=== PATIENT | female | born 1995 | race African-American/Black ===

== ENCOUNTER 2020-07-27 06:00 | Inpatient (IN) ==
[2020-07-27] MEDS ORDERED: PITOCIN ONE (06:30)
[2020-07-27] MEDS ORDERED: D5 1/2 NS 1000 ML 1,000 ML IV ONE (06:31)
[2020-07-27] MEDS ORDERED: BETADINE SOLN ONE (06:31)
[2020-07-27] MEDS ORDERED: AMPICILLIN VIAL 1 GRAM ONE ×2 (06:34→12:13)
[2020-07-27] MEDS ORDERED: D5 1/2 NS 1L W PITOCIN 20 UNITS/L 20 UNITS/1,000 ML BAG IV ONE ×2 (06:34→18:17)
[2020-07-27] MEDS ORDERED: D5LR 1L W PITOCIN 10 UNITS/L 10 UNITS/1,000 ML BAG IV ONE ×2 (06:34→07:08)
[2020-07-27] MEDS ORDERED: NS 100 ML IV 200 ML IV ONE (06:35)
[2020-07-27] MEDS ORDERED: AMPICILLIN VIAL 2 GRAM ONE (06:35)
[2020-07-27] MEDS: D5 1/2 NS 1000 ML 1,000 ML IV SCH ×2 (06:40→16:43)
--- NOTE | 2020-07-27 07:08 | DR.OB ---
OB Quick Note - Assessment/Plan Assessment/Plan: L&D 07/27/20 at 6:55am S-No complaint. O-Afebrile,VSS PLV=866 with good LTV, +accel, no decel. CTX=occasional,mild CVX=1cm/thick/-2/VTX AROM with clear fluid. IUPC placed but FSE not able to be placed. A-IUP at 39 1/7 weeks for induction +GBS Abnormal quad screen P-Begin pitocin induction IV ABX in labor Anticipate
[2020-07-27] MEDS ORDERED: AMPICILLIN VIAL 2 GRAM 2 G in NS 100 ML IV + SPIKE MINIBAG* 100 ML IV SCH (07:26)
[2020-07-27] MEDS ORDERED: NUBAIN INJ 200 MG VIAL MULTIDOSE IVP PRN (07:26)
[2020-07-27] MEDS ORDERED: MORPHINE SULFATE INJ 2 MG INJ IVP PRN (07:26)
[2020-07-27] MEDS ORDERED: REGLAN INJ 10 MG VIAL IVP PRN ×2 (07:26→18:15)
[2020-07-27] MEDS ORDERED: PHENERGAN INJ 25 MG IM PRN ×2 (07:26→18:15)
[2020-07-27] MEDS ORDERED: D5LR 1L W PITOCIN 10 UNITS/L 10 UNITS/1,000 ML BAG IV PRN (07:26)
[2020-07-27] MEDS ORDERED: STADOL INJ IVP PRN (07:26)
[2020-07-27] MEDS ORDERED: PITOCIN IVP ONE (07:26)
[2020-07-27] MEDS: VSL#3 PO SCH ×2 (07:28→09:00)
[2020-07-27] MEDS: AMPICILLIN VIAL 1 GRAM 1 G in NS 50 ML IV + SPIKE MINIBAG* 50 ML IV SCH ×4 (07:36→16:45)
--- NOTE | 2020-07-27 12:03 | DR.OB ---
OB Quick Note - Assessment/Plan Assessment/Plan: L&D 07/27/20 at 11:55am Pitocin=6mu/min. Ampicillin S-No complaint except CTX pain. O-Afebrile,VSS XYB=649 with good LTV, +accel, no decel. CTX=q1 1/2 to 3 min., about 35-55mmHg CVX=1cm/50%/-1 A-IUP at 39 1/7 weeks for induction +GBS Abnormal quad. screen P-Cont. pitocin induction/IV ABX in labor Anticipate
[2020-07-27] MEDS ORDERED: NS 100 ML IV 100 ML IV ONE (12:13)
[2020-07-27] MEDS ORDERED: STADOL INJ ONE (13:21)
[2020-07-27] MEDS ORDERED: LR 1000 ML IV 1,000 ML IV ONE (16:11)
[2020-07-27] MEDS ORDERED: ANCEF 1 GRAM IV PREMIX* 2 G/100 ML BAG IV ONE (16:12)
--- NOTE | 2020-07-27 16:30 | DR.OB ---
OB Quick Note - Assessment/Plan Assessment/Plan: L&D 07/27/20 at 4:25pm S-No complaint except CTX. O-Afebrile,VSS GTP=139 with poor LTV, +accel, no decel. CTX=q 1 1/2 to 2 min., about 35-55mmHg CVX=1cm/50%/-1 (no change since prior exam) A-IUP at 39 1/7 weeks with failure to dilate P-To C/S
[2020-07-27] MEDS: LR 1000 ML IV 1,000 ML IV ONE ×2 (16:42→16:44)
[2020-07-27] MEDS ORDERED: DILAUDID INJ ONE (16:43)
[2020-07-27] MEDS ORDERED: EPHEDRINE SULFATE INJ ONE (16:50)
[2020-07-27] MEDS ORDERED: VERSED ONE (16:50)
[2020-07-27] MEDS ORDERED: BENADRYL INJ 50 MG VIAL IVP PRN ×2 (18:15→18:40)
[2020-07-27] MEDS ORDERED: DILAUDID INJ IVP PRN (18:15)
[2020-07-27] MEDS ORDERED: ZOFRAN INJ 4 MG VIAL IVP PRN ×2 (18:15→18:40)
[2020-07-27] MEDS ORDERED: PERCOCET TAB 5/325 MG PO PRN (18:40)
[2020-07-27] MEDS ORDERED: MYLICON TAB 80 MG CHEW PO PRN (18:40)
[2020-07-27] MEDS ORDERED: ADACEL or BOOSTRIX TDaP VACCINE IM ONE (18:40)
[2020-07-27] MEDS ORDERED: NARCAN INJ IVP PRN (18:40)
[2020-07-27] MEDS ORDERED: TORADOL 30 MG VIAL ONE (18:54)
[2020-07-27] MEDS: TORADOL 30 MG VIAL IVP PRN (18:57)
[2020-07-27] MEDS ORDERED: D5 1/2 NS 1000 ML 1,000 ML with PITOCIN 20 UNITS IV SCH ×2 (19:00)
[2020-07-28] MEDS ORDERED: ADACEL or BOOSTRIX TDaP VACCINE IM ONE (02:58)
[2020-07-28] MEDS: TORADOL 30 MG VIAL IVP PRN (04:39)
[2020-07-28 05:23] LABS: HEMATOCRIT 29.6 % (36.0-47.0); HEMOGLOBIN 9.6 g/dL (12.0-16.0)
[2020-07-28] MEDS ORDERED: PERCOCET TAB 5/325 MG PO PRN (07:37)
[2020-07-28] MEDS: COLACE CAP 100 MG PO SCH ×2 (09:01→20:27)
[2020-07-28] MEDS: PRENATAL PLUS PO SCH (09:01)
[2020-07-28] MEDS: VSL#3 PO SCH (09:01)
[2020-07-28] MEDS: MOTRIN TAB 800 MG PO PRN (09:01)
[2020-07-28] MEDS: BACTROBAN TOPICAL OINT TOP SCH ×2 (13:12→21:26)
[2020-07-28] MEDS: FERROUS GLUCONATE PO SCH (16:39)
[2020-07-29] MEDS: BACTROBAN TOPICAL OINT TOP SCH (06:14)
[2020-07-29] MEDS: FERROUS GLUCONATE PO SCH (06:15)
[2020-07-29 08:10] VITALS: BP 132/67
[2020-07-29] MEDS: MOTRIN TAB 800 MG PO PRN (09:38)
[2020-07-29] MEDS: VSL#3 PO SCH (09:38)
[2020-07-29] MEDS: PRENATAL PLUS PO SCH (09:39)
[2020-07-29] MEDS: COLACE CAP 100 MG PO SCH (09:40)
--- NOTE | 2020-07-29 11:02 | NOTE.PROBC ---
Progress Note OB-C/S Subjective Data Subjective: No complaints, decreased lochia. Tolerating regular diet. No N/V. Ambulating well. Rivas draining well. Pain under good control. Objective Data Result Diagrams: 07/28/20 05:12 Objective Data: CV= RRR no MRG Lungs=CTA Bilaterally Abd=(+) BS, soft, ND, appropriately tender near incision. Bandage removed. Incision clean/dry/intact, no erythema, no bleeding, no discharge. Dermabond/Stitches intact. Fundus firm/NT/ at -3 cm below umbilicus. Ext= No edema, NT, No Cords. Graduated Compression Stockings/Sequential Compression Devices Bilaterally. Assessment Assessment: s/p doing well ready for d/c
== END 2020-07-29 10:30 | disposition home or self-care (01) | DRG 788 ==
LOC: LD 06:24 → MED/SURG 17:35
PROVIDERS: ADMIT Specialist; ATTEND Specialist
DX: Z37.0 Single live birth; O99.824 Streptococcus B carrier state complicating childbirth; Z23 Encounter for immunization; Z20.828 Contact with and (suspected) exposure to other viral communicable diseases; O28.5 Abnormal chromosomal and genetic finding on antenatal screening of mother; O62.0 Primary inadequate contractions; Z01.818 Encounter for other preprocedural examination; B95.1 Streptococcus, group B, as the cause of diseases classified elsewhere; Z3A.39 39 weeks gestation of pregnancy; Z01.812 Encounter for preprocedural laboratory examination